=== PATIENT | male | born 1945 | race Caucasian/White ===

== ENCOUNTER → 2019-11-03 16:49 | Outpatient (BNVA) | payer MEDICARE, OTHER, SELFPAY | PROVIDERS: Visit Provider Nurse Practitioner Family | DX: Z20.828 Contact with and (suspected) exposure to other viral communicable diseases (principal) | CPT/HCPCS: 87635 ==

== ENCOUNTER 2019-11-05 07:27 | Outpatient (CLI) | payer MEDICARE, OTHER, SELFPAY ==
--- NOTE | 2019-11-05 08:00 | USCV_ITS ---
Kash Cantor Age: 74 Gender: M : 1945 Exam Date: 11/05/2019 07:27 Ordering Phys: Cristal Mejia AFLOAT CRYPTOLOGIC MANAGER Technologist: Araseli Paula Exam Location: [facility] Indication: UNSTEADY GAIT Risk Factors: Previous Vascular Surgery: Right Brachial BP: / Left Brachial BP: / Right Left Velocity (cm/s) Spectral Plaque Velocity (cm/s) Spectral Plaque Syst/Diast Broadening Syst/Diast Broadening 58.40/ 16.50 Prox CCA 74.50 / 18.50 93.70/ 18.70 Mid CCA 52.50 / 9.20 71.70/ 16.50 Distal CCA 52.50 / 15.60 59.50/ 14.30 Prox ICA 64.80 / 14.40 58.60/ 21.10 Mid ICA 104.00/ 23.70 64.10/ 22.90 Distal ICA 57.60 / 15.40 111.40 ECA 81.30 0.68 ICA/CCA 1.98 Not Vertebral Antegrade Visualized / cm/s 30.90/ 12.40 cm/s Tri Subclavian Tri 52.50 56.60 FINDINGS Comparison: none available. No significant elevation of systolic or diastolic velocities. Mild atherosclerotic plaque left bifurcation with mild turbulence. Right vertebral artery not visualized. CONCLUSIONS Bilateral ICA stenosis less than 50%. Mild atherosclerosis left carotid. Dr. Stephanie Simpson DO (Electronically Signed) Final Date: 05 November 2019 09:08 S
== END 2019-11-05 07:28 | disposition home or self-care (01) ==
LOC: RAD 07:30
PROVIDERS: Visit Provider Nurse Practitioner Family
DX: R26.81 Unsteadiness on feet (principal); I65.23 Occlusion and stenosis of bilateral carotid arteries; I65.22 Occlusion and stenosis of left carotid artery
CPT/HCPCS: 93880

== ENCOUNTER → 2020-01-07 12:21 | Outpatient (BNVA) | payer MEDICARE, OTHER, SELFPAY | PROVIDERS: Visit Provider Nurse Practitioner Family | DX: E11.9 Type 2 diabetes mellitus without complications (principal) | CPT/HCPCS: 80053; 80061; 82043; 82607; 83036; 85025; 87086 ==

== ENCOUNTER → 2020-01-26 15:20 | Outpatient (BNVA) | payer MEDICARE, OTHER, SELFPAY | PROVIDERS: Visit Provider Nurse Practitioner Family | DX: M25.512 Pain in left shoulder (principal) | CPT/HCPCS: 73030 ==

== ENCOUNTER → 2020-07-13 16:07 | Outpatient (BNVA) | payer MEDICARE, OTHER, SELFPAY | PROVIDERS: Visit Provider Nurse Practitioner Family | DX: M25.512 Pain in left shoulder (principal); W19.XXXA Unspecified fall, initial encounter | CPT/HCPCS: 73030 ==

== ENCOUNTER → 2021-07-04 16:56 | Outpatient (BNVA) | payer MEDICARE, OTHER, SELFPAY | PROVIDERS: PCP Nurse Practitioner Family; Visit Provider Nurse Practitioner Family | DX: U07.1 COVID-19 (principal); Z20.822 Contact with and (suspected) exposure to COVID-19 | CPT/HCPCS: 87635 ==

== ENCOUNTER → 2022-07-02 15:50 | Outpatient (BNVA) | payer MEDICARE, OTHER, SELFPAY | PROVIDERS: PCP Nurse Practitioner Family; Visit Provider Nurse Practitioner Family | DX: R09.81 Nasal congestion (principal); J40 Bronchitis, not specified as acute or chronic | CPT/HCPCS: 87400; 87426 ==

== ENCOUNTER → 2022-11-20 13:06 | Outpatient (BNVA) | payer MEDICARE, OTHER, SELFPAY | PROVIDERS: PCP Nurse Practitioner Family; Visit Provider Nurse Practitioner Family | DX: L57.0 Actinic keratosis (principal); D22.5 Melanocytic nevi of trunk; L81.4 Other melanin hyperpigmentation; Z87.891 Personal history of nicotine dependence; Z85.828 Personal history of other malignant neoplasm of skin; L57.8 Other skin changes due to chronic exposure to nonionizing radiation | CPT/HCPCS: 17004; 99213 ==

== ENCOUNTER 2023-04-16 13:03 | Emergency (ER) | payer OTHER, SELFPAY ==
[2023-04-16] VITALS (98 sets, daily range): BP systolic 79–152; BP diastolic 47–94; PULSE 94–161; RESP 9–44; TEMP 36.8–39.1; O2SAT 83–100; BMI 27.8
--- NOTE | 2023-04-16 13:11 | XR_ITS ---
WS: [id number] Exam: XR chest 1V portable [id number] Date/Time of Exam: 04/16/2023 1:12 PM Reason For Exam: sob Comparison 11/24/2018. There are patchy infiltrates in the mid and lower aspects of both lungs. Mild cardiac enlargement. No pleural effusions or pneumothorax. Numerous old left-sided rib fractures. The mediastinum is normal in contour for technique. Anchoring screws in the RIGHT humeral head. Spondylosis of the dorsal spine . IMPRESSION: 1. Patchy infiltrates in the mid and lower aspects of both lungs most likely representing pneumonia. Imaging follow-up to confirm complete resolution is suggested to rule out underlying mass.. 2. Numerous old left-sided rib fractures.
[2023-04-16] MEDS: sodium chloride 0.9% 1,000 ML 999 ML IV ×2 (13:20→14:23)
--- NOTE | 2023-04-16 13:32 | ECG_ITS ---
[facility] Test Date: 2023-04-16 Pat Name: Kash Cantor Department: Room: Gender: Male Handyman: : 1945 Requested By: Khoi Castro Order Number: [id number] Al MD: Beata Nguyễn M.D. Measurements Intervals [place] Rate: 96 P: 60 MO: 182 QRS: 81 QRSD: 94 T: 92 QT: 334 QTc: 424 Interpretive Statements SINUS RHYTHM NONSPECIFIC ST & T-WAVE ABNORMALITY Compared to ECG 03/13/2017 19:43:10 T-wave abnormality now present Electronically Signed On 04-16-2023 19:37:41 BLOCKMAN by Beata Nguyễn M.D. [email or web address]
--- NOTE | 2023-04-16 13:37 | PC.PHAR ---
[facility]ED [facility] AT 1:40 PM
[2023-04-16 14:02] LABS: Mean Corpuscular HGB Conc 30.7 g/dL (30-55); Mean Corpuscular Hemoglobin 30.6 pg (27-33); Mean Corpuscular Volume 99.5 fl (82-101); Red Blood Count 2.06 10^6/uL (3.85-5.65); Red Cell Distribution Width 17.8 % (12.1-15.1); White Blood Count 2.63 10^3/uL (3.29-11.43)
[2023-04-16 14:13] LABS: Influenza A by IFA negative (Negative); Influenza B by IFA negative (Negative); SARS Covid-2 Antigen negative (Negative)
--- NOTE | 2023-04-16 14:17 | ED_ITS ---
HPI - SOB/Dyspnea 2 General: Chief Complaint: Shortness of Breath/Dyspnea Stated Complaint: SOB, Weakness Time Seen by Provider: 04/16/23 13:07 Source: patient and EMS Mode of arrival: EMS Limitations: no limitations History of Present Illness: HPI Narrative: 77-year-old male states that over the la st 3 to 4 days she has been having increased weakness has also been having shortness of breath along with a cough. He states he wears oxygen as needed at home but is currently requiring 4 L. Had low-grade fevers at home denies any pain anywhere denies any worsening proving factors. PFSH ED 2 PFSH: Medical History History of nonmelanoma skin cancer Diabetes mellitus [facility] Depression Edema Family History Denies family history of Diabetes mellitus type 1 Diabetes mellitus, type 2 Heart disease Cancer Social History Smoking and tobacco/nicotine status: former use of tobacco/nicotine Quit status (tobacco/nicotine): has quit using Year quit tobacco: 1975 Former quit date comment: 3 PPD x 20 Second hand smoke exposure: No Alcohol intake: former Year of sobriety/quit date alcohol: 1975 Former alcohol use details: beer Substance/Drug Use: never Adopted: No Caregiver/support person: Yes Lives independently: No Household members: family Housing: House Marital status: service: Yes Current occupational status: retired Current gender identity: Male Special malika needs: No Agree to transfusion: Yes Physical Exam 2 Const: COMMON NORMALS: no acute distress, patient oriented x3 and healthy appearing HENMT: COMMON NORMALS: normocephalic and atraumatic HEAD & SCALP: n ormocephalic and atraumatic Neck/C-Spine: COMMON NORMALS: full ROM and supple Chest: COMMONS NORMALS: normal inspection of the chest and normal palpation of entire chest wall Resp: COMMON NORMALS: No retractions EFFORT & INSPECTION: Yes respiratory distress AUSCULTATION: rales Cardio: COMMON NORMALS: regular rate, regular rhythm and No murmurs present (Cardio) RATE: regular rate RHYTHM: regular rhythm GI: COMMON NORMALS: Normal to inspection, nondistended, normoactive bowel sounds present, Soft to palpation, non-tender and no masses PALPATION: Yes Soft to palpation Extremity: COMMON NORMALS: normal to inspection and full ROM Neuro: COMMON NORMALS: patient oriented x3, moves all extremities and no focal motor deficits Psych: COMMON NORMALS: mental status grossly normal, Normal thought process present and cooperative THOUGHT PROCESS: Normal thought process present Skin: COMMON NORMALS: no rashes or lesions noted and no wounds GENERAL SKIN EXAM: no rashes or lesions noted Course 2 Vital Signs: Vital signs: Vital Signs Temperature 101.5 F H 04/16/23 20:22 Pulse Rate 129 H 04/16/23 20:22 Respiratory Rate 36 H 04/16/23 20:22 Blood Pressure 129/59 04/16/23 20:22 Pulse Oximetry 96 04/16/23 20:22 Oxygen Delivery Me thod BiPAP 04/16/23 19:10 Oxygen Flow Rate 4 04/16/23 17:45 Fraction of Inspir ed Oxygen 40 04/16/23 17:56 MDM - SOB/Dyspnea Medical Decision Making Patient presents here with shortness of breath he was found to have bilateral pneumonia he started on IV antibiotics here. He is also found to be pancytopenic with extremely low platelets and hemoglobin along with white count did transfuse platelets and packed red blood cells. Spoke to hospitalist here and she spoke to oncologist who recommended transfer for likely bone marrow biopsy I did speak to [facility] in [place] and will transfer there. Medical Records I reviewed the patient's medical records. Lab Data I reviewed the patient's lab results. 04/16/23 15:19 04/16/23 13:40 Labs/Radiology: Laboratory Results WBC 2.43 10^3/uL (3.29-11.43) L 04/16/23 15: RBC 2.04 10^6/uL (3.85-5.65) L 04/16/23 15: Hgb 6.30 g/dL (11.27-16.99) L* 04/16/23 15: Hct 20.1 % (37-53) L* 04/16/23 15:19 MCV 98.5 fl (82-101) 04/16/23 15: MCH 30.9 pg (27-33) 04/16/23 15:19 MCHC 31.3 g/dL (30-55) 04/16/23 15:19 RDW 17.5 % (12.1-15.1) H 04/16/23 15:19 Plt Count 0 10^3/cmm (157-399) L* D 04/16/23 15:19 MPV Not Reportable 04/16/23 15:19 Neut % (Auto) 57.6 % 04/16/23 15:19 Lymph % (Auto) 23.5 % 04/16/23 15:19 [place] % (Auto) 18.1 % 04/16/23 15:19 Eos % (Auto) 0.0 % 04/16/23 15:19 Baso % (Auto) 0.4 % 04/16/23 15:19 Neut # (Auto) 1.40 10^3/uL (1.8-7.7) L 04/16/23 15:19 Lymph # (Auto) 0.6 10^3/uL (0.8-4.8) L 04/16/23 15:19 [place] # (Auto) 0.4 10^3/uL (0.2-0.9) 04/16/23 15:19 Eos # (Auto) 0.0 10^3/uL (0.0-0.8) 04/16/23 15:19 Baso # (Auto) 0.0 10^3/uL (0.0-0.1) 04/16/23 15:19 Nucleated RBC % (auto) 0 % 04/16/23 15:19 Total Counted 100 (0-100) 04/16/23 13:40 Atypical Lymphs % 0.0 % (0-5) 04/16/23 13:40 Absolute Neutrophils 1.7 10^3/cmm (1.4-6.5) 04/16/23 13:40 Segmented Neutrophils 51 % 04/16/23 13:40 Abs Segm Neuts (Man) 1.3 10/cmm (1.6-7.1) L 04/16/23 13:40 Band Neutrophils 15.0 % 04/16/23 13:40 Abs Band Neuts (Man) 0.4 10^3/cmm (0.0-1.2) 04/16/23 13:40 Absolute Lymphocytes 0.4 10^3/cmm (1.2-3.4) L 04/16/23 13:40 Lymphocytes (Manual) 16 % 04/16/23 13:40 Monocytes (Manual) 17.0 % 04/16/23 13:40 Absolute Monocytes 0.4 10^3/cmm (0.1-0.6) 04/16/23 13:40 Eosinophils (Manual) 1 % 04/16/23 13:40 Absolute Eosinophils 0.0 10^3/cmm (0.0-0.7) 04/16/23 13:40 Basophils (Manual) 0.0 % 04/16/23 13:40 Absolute Basophils 0.0 10^3/cmm (0.0-0.2) 04/16/23 13:40 Nucleated RBCs # 0.0 /100WBC 04/16/23 15:19 Platelet Estimate Decreased (Normal) 04/16/23 13:40 Giant Platelets Trace 04/16/23 13:40 Polychromasia 1+ H 04/16/23 13:40 Poikilocytosis 2+ H 04/16/23 13:40 Anisocytosis 2+ H 04/16/23 13:40 Macrocytosis Trace 04/16/23 13:40 Tear Drop Cells 1+ 04/16/23 13:40 Ovalocytes 1+ H 04/16/23 13:40 PT 16.20 SECONDS (12.1-14.9) H 04/16/23 13:40 INR 1.26 (0.8-1.2) H 04/16/23 13:40 Specimen Type Arterial 04/16/23 16:42 Sample Site Radial, left 04/16/23 16:42 ABG pH 7.34 (7.35-7.45) L 04/16/23 16:42 ABG pCO2 49.7 mmHg (35-45) H 04/16/23 16:42 ABG pO2 64.5 mmHg (80.0-100.0) L 04/16/23 16:42 ABG PO2/FiO2 Ratio 0 04/16/23 16:42 ABG HCO3 26.9 mmol/L (22-26) H 04/16/23 16:42 ABG Base Excess 0.9 mmol/L (-2.0-2.0) 04/16/23 16:42 Foreign Test Pos 04/16/23 16:42 Hematocrit 22.1 % (42-52) L 04/16/23 16:42 O2 Delivery Device Nc 04/16/23 16:42 O2 Liters/Min 3.0 % 04/16/23 16:42 FiO2 32.0 % 04/16/23 16:42 Cabin Cleaning Supervisor ID Cak 04/16/23 16:42 Sodium 134 mmol/L (136-145) L 04/16/23 13:40 Potassium 4.2 mmol/L (3.5-5.1) 04/16/23 13:40 Chloride 98 mmol/L (98-107) 04/16/23 13:40 Carbon Dioxide 27 mmol/L (22-29) 04/16/23 13:40 Anion Gap 13.2 (5-19) 04/16/23 13:40 BUN 37 mg/dL (8-23) H 04/16/23 13:40 Creatinine 1.2 mg/dL (0.7-1.2) 04/16/23 13:40 GFR Calculation Not Reportable 04/16/23 13:40 Glucose 97 mg/dL (65-115) 04/16/23 13:40 Calculated Osmolality 287 mOsm/kg (285-295) 04/16/23 13:40 Lactic Acid 1.5 mmol/L (0.5-2.2) 04/16/23 13:40 Calcium 8.3 mg/dL (8.5-10.5) L 04/16/23 13:40 Total Bilirubin 0.8 mg/dL (0.15-1.2) 04/16/23 13:40 AST 34 U/L (0-40) 04/16/23 13:40 ALT 18 U/L (0-41) 04/16/23 13:40 Alkaline Phosphatase 59 U/L (40-130) 04/16/23 13:40 NT-Pro-B Natriuret Pep 5270 pg/mL (0-450) H 04/16/23 13:40 Total Protein 6.5 g/dL (6.6-8.7) L 04/16/23 13:40 Albumin 3.3 g/dL (3.5-5.2) L 04/16/23 13:40 Globulin 3.2 g/dL (1.3-4.6) 04/16/23 13:40 Influenza Type A Ag negative (Negative) 04/16/23 13:42 Influenza Type B Ag negative (Negative) 04/16/23 13:42 SARS-CoV-2 Ag (Rapid) negative (Negative) 04/16/23 13:42 Blood Type A Positive 04/16/23 15:19 Rho(D) Type Rh positive 04/16/23 15:19 Antibody Screen Negative 04/16/23 15:19 Crossmatch See Detail 04/16/23 15:19 All radiology interpretation(s) finalized by discharge EKG Data EKG 1: I personally reviewed and interpreted this EKG as follows: EKG Interpretation Date: 04/16/23 EKG interpretation time: 13:32 Interpretation: nsr hr [address] or t wave abnormalities qrs 94 qtc 388 Critical Care Time 2 Critical Care Time: Critical Care Time: Yes Total Critical Care Time: 45 Attestation: The high probability of a clinically significant, sudden or life threatening deterioration of the patient's resp system(s) required my full and direct attention, intervention and personal management. The critical care time is as shown. This time is in addition to time spent performing any reported procedures but includes the following: [x] Data and vital sign review and interpretation [x] Patient assessment, examination and intervention [x] Documentation [x] Medication orders and management Discharge Plan Discharge Patient Disposition: Xfer Short-Term Hosp Clinical Impression: Pneumonia, Pancytopenia Condition: Stable Referrals: Cristal Mejia FNP [Primary Care Provider] - Coding Level of Care Code ED Size Tester for Estefani Reynoso
[2023-04-16 14:22] LABS: INR 1.26 (0.8-1.2)
[2023-04-16] MEDS: cefTRIAXone 1,000 MG in sodium chloride 0.9% (plus) 50 ML 100 MG IV (14:27)
[2023-04-16 14:28] LABS: Lactic Sepsis W/Reflex 1.5 mmol/L (0.5-2.2)
[2023-04-16 14:41] LABS: Alanine Aminotransferase 18 U/L (0-41); Albumin Level 3.3 g/dL (3.5-5.2); Alkaline Phosphatase 59 U/L (40-130); Anion Gap 13.2 (5-19); Aspartate Amino Transferase 34 U/L (0-40); Blood Urea Nitrogen 37 mg/dL (8-23); Calcium 8.3 mg/dL (8.5-10.5); Carbon Dioxide 27 mmol/L (22-29); Chloride 98 mmol/L (98-107); Globulin 3.2 g/dL (1.3-4.6); Glucose 97 mg/dL (65-115); NT Pro B Type Natriuretic Pept 5270 pg/mL (0-450); Osmolality Calculated 287 mOsm/kg (285-295); Potassium 4.2 mmol/L (3.5-5.1); Sodium 134 mmol/L (136-145); Total Bilirubin 0.8 mg/dL (0.15-1.2); Total Protein 6.5 g/dL (6.6-8.7)
[2023-04-16 14:44] LABS: Hematocrit 20.5 % (37-53); Platelet Count 1 10^3/cmm (157-399); Slide Review Slide Review Perform
[2023-04-16 15:02] LABS: Absolute Segmented Neutrophil 1.3 10/cmm (1.6-7.1); Band Neutrophils Absolute 0.4 10^3/cmm (0.0-1.2); Eosinophils 1 %; Lymphocytes 16 %; Monocytes Absolute 0.4 10^3/cmm (0.1-0.6); Segmented Neutrophils 51 %; Total Cells Counted 100 (0-100)
[2023-04-16 15:03] LABS: Absolute Neutrophil 1.7 10^3/cmm (1.4-6.5); Anisocytosis 2+; Giant Platelets Trace; Lymphocytes Absolute 0.4 10^3/cmm (1.2-3.4); Macrocytosis Trace; Ovalocytes 1+; Platelet Estimate Decreased (Normal); Poikilocytosis 2+; Polychromasia 1+; Tear Drop Cells 1+
[2023-04-16 15:32] LABS: Basophils % 0.4 %; Lymphocytes # 0.6 10^3/uL (0.8-4.8); Lymphocytes % 23.5 %; Mean Corpuscular HGB Conc 31.3 g/dL (30-55); Mean Corpuscular Hemoglobin 30.9 pg (27-33); Mean Corpuscular Volume 98.5 fl (82-101); Monocytes # 0.4 10^3/uL (0.2-0.9); Monocytes % 18.1 %; Neutrophils % 57.6 %; Nucleated Red Blood Cells % 0 %; Red Blood Count 2.04 10^6/uL (3.85-5.65); Red Cell Distribution Width 17.5 % (12.1-15.1); White Blood Count 2.43 10^3/uL (3.29-11.43)
--- NOTE | 2023-04-16 15:47 | PC.PHAR ---
MEDICATIONS VERIFIED BY PT AND [facility] L[facility]
[2023-04-16 15:50] LABS: Hematocrit 20.1 % (37-53); Platelet Count 0 10^3/cmm (157-399)
[2023-04-16 15:51] LABS: Slide Review Slide Review Perform
[2023-04-16] MEDS: sodium chloride 0.9% 100 mL Bag 50 ML IV ×2 (15:57→23:48)
[2023-04-16] MEDS: ondansetron 2 mg/ML SDV 2 mL 4 MG IVP (16:36)
[2023-04-16] MEDS: morphine 4 mg/mL SDV 1 mL IVP (16:40)
[2023-04-16 16:53] LABS: ABG PCO2 49.7 mmHg (35-45); ABG PH Result 7.34 (7.35-7.45); Arterial Blood Gas Hematocrit 22.1 % (42-52); Base Excess ABG 0.9 mmol/L (-2.0-2.0); Blood Gas Allen Test Pos; Blood Gas Operator Identificat CAK; Blood Gas Sample Site Radial, left; Blood Gas Sample Type Arterial; HCO3 ABG 26.9 mmol/L (22-26); Oxygen Device NC; PO2 ABG 64.5 mmHg (80.0-100.0); PO2 FiO2 Ratio Arterial Blood 0
[2023-04-16] MEDS: acetaminophen 500 mg Tablet 1000 MG PO ×2 (18:32→23:15)
[2023-04-16] MEDS: FUROsemide 10 mg/mL SDV 10mL 60 MG IVP (18:35)
[2023-04-16] MEDS: piperacillin-tazobactam 3.375 GM in sodium chloride 0.9% (plus) 50 ML IV (21:21)
[2023-04-16] MEDS: vancomycin 1,000 MG in sodium chloride 0.9% 250 ML 250 MG IV (21:53)
== END 2023-04-16 23:50 | disposition short-term general hospital (02) ==
PROVIDERS: Emergency Provider Emergency Medicine; PCP Nurse Practitioner Family
DX: J18.9 Pneumonia, unspecified organism (principal); D61.818 Other pancytopenia; Z11.52 Encounter for screening for COVID-19; E11.9 Type 2 diabetes mellitus without complications; Z87.891 Personal history of nicotine dependence
CPT/HCPCS: 36415; 36430; 36600; 71045; 80053; 82803; 83605; 83880; 85007; 85025; 85610; 86850; 86900; 86920; 87040; 87426; 87804; 93005; 94660; 96365; 96367; 96375; 99291; 99292; J0696; J1940; J2270; J2405; J2543; J3370; J7030; J7050; P9035; P9040